=== PATIENT | male | born 1965 | race Caucasian/White ===

== ENCOUNTER 2020-06-03 11:06 | Inpatient (IN) | payer MEDICARE ==
[~2020-06-03] VITALS: Ht 165.1 cm; Wt 113.9 kg
[~2020-06-03 11:06] MED LIST: GLUCOPHAGE1000 MG PO
[2020-06-03 11:53] LABS: HEMOGLOBIN 11.7 gm/dl (14.0-17.5); RED BLOOD COUNT 3.81 M/UL (4.20-5.50); WHITE BLOOD COUNT 8.2 K/UL (4.5-11.0)
[2020-06-03] MEDS ORDERED: ZYLOPRIM 300 M300 MG PO (15:22)
[2020-06-03] MEDS ORDERED: LISINOPRIL20 MG PO (15:23)
[2020-06-03] MEDS ORDERED: KENALOG CREAM 015 GM TOP (15:24)
[2020-06-03] MEDS ORDERED: LOPRESSOR50 MG PO (15:24)
[2020-06-03] MEDS ORDERED: IBUPROFEN200 MG PO (15:35)
[2020-06-04 02:29] LABS: HEMOGLOBIN 11.4 gm/dl (14.0-17.5); RED BLOOD COUNT 3.83 M/UL (4.20-5.50); WHITE BLOOD COUNT 9.2 K/UL (4.5-11.0)
[2020-06-04] MEDS ORDERED: ALLOPURINOL100 MG PO ×2 (10:52→10:59)
[2020-06-04] MEDS ORDERED: DOXYCYCLINE HY100 MG PO (10:59)
[2020-06-04] MEDS ORDERED: AUGMENTIN 250-250 MG PO (10:59)
== END 2020-06-04 15:00 | disposition left against medical advice (07) | DRG 291 ==
LOC: ER1 11:06 → CDU 15:06
PROVIDERS: Emergency Medicine; Physician Assistant; ADMIT Internal Medicine
DX: I13.0 Hypertensive heart and chronic kidney disease with heart failure and stage 1 through stage 4 chronic kidney disease, or unspecified chronic kidney disease (principal); I50.41 Acute combined systolic (congestive) and diastolic (congestive) heart failure; J18.9 Pneumonia, unspecified organism; N17.9 Acute kidney failure, unspecified; Z68.41 Body mass index [BMI] 40.0-44.9, adult; N18.9 Chronic kidney disease, unspecified; E11.22 Type 2 diabetes mellitus with diabetic chronic kidney disease; I25.10 Atherosclerotic heart disease of native coronary artery without angina pectoris; R16.0 Hepatomegaly, not elsewhere classified; Z20.822 Contact with and (suspected) exposure to COVID-19; I16.0 Hypertensive urgency; E78.5 Hyperlipidemia, unspecified; E66.9 Obesity, unspecified; D64.9 Anemia, unspecified; R77.8 Other specified abnormalities of plasma proteins; Z79.84 Long term (current) use of oral hypoglycemic drugs
CPT/HCPCS: 0240U; 71045; 71046; 80053; 81001; 82550; 82553; 82962; 83874; 83880; 84484; 85025; 85610; 85730; 87040; 87086; 93005; 96365; 96372; 96375; 96376; 99285; J0696; J1940